=== PATIENT | female | born 1970 | race Caucasian/White ===

== ENCOUNTER 2021-01-05 02:24 | Observation (INO) ==
[2021-01-05] MEDS ORDERED: 0.9 % Sodium Chloride 1,000 ML IVC ONE (02:53)
[2021-01-05] MEDS ORDERED: Ondansetron 4 MG/2 ML VIAL IVP ONE (02:54)
[2021-01-05] MEDS ORDERED: *HR* FentaNYL (PF) 100 MCG/2 ML VIAL IVP ONE ×2 (02:54→03:46)
[2021-01-05 03:09] LABS: Basophils % 0.2 %; Hematocrit 47.8 % (35.3-44.9); Hemoglobin 15.8 g/dL (11.5-15.4); Immature Granulocytes % 0.6 % (0-4); Lymphocytes # 1.1 K/mcL (0.6-4.6); Lymphocytes % 6.4 %; Mean Corpuscular HGB Conc 33.1 g/dL (31.6-35.5); Mean Corpuscular Hemoglobin 27.4 pg (28.0-33.3); Mean Platelet Volume 11.6 fL (9.4-12.4); Monocytes # 0.6 K/mcL (0.0-1.3); Monocytes % 3.5 %; Neutrophils # 14.6 K/mcL (1.6-8.9); Platelet Count 342 K/mcL (140-400); Red Blood Count 5.76 M/mcL (3.82-4.97); Red Cell Distribution Width 13.4 % (11.5-14.5); Segmented Neutrophils % 89.3 %; White Blood Count 16.3 K/mcL (4.3-11.1)
[2021-01-05 03:26] LABS: Alanine Aminotransferase 31 Units/L (7-52); Albumin 4.5 g/dL (3.5-5.7); Albumin/Globulin Ratio 1.5 (1.1-2.2); Alkaline Phosphatase 115 Units/L (34-104); Aspartate Amino Transferase 29 Units/L (13-39); BUN/Creatinine Ratio 11 (6-26); Bilirubin,Direct 0.3 mg/dL (0.0-0.2); Bilirubin,Indirect 0.8 mg/dL (0.0-1.0); Bilirubin,Total 1.1 mg/dL (0.3-1.0); Blood Urea Nitrogen 12 mg/dL (6-20); Carbon Dioxide 26 mEq/L (23-29); Chloride 99 mEq/L (98-107); Globulin 3.1 g/dL (2.4-3.5); Glucose 147 mg/dL (70-105); Lipase 7 Units/L (11-82); Osmolality,Calculated 282 (280-300); Potassium 3.9 mEq/L (3.5-5.1); Sodium 135 mEq/L (136-145); Total Protein 7.6 g/dL (6.4-8.9); eGFR For African Americans > 60 (> 60); eGFR For Non-African Americans 52 (> 60)
[2021-01-05] MEDS ORDERED: levoFLOXacin 750 MG/150 ML 750 MG/150 ML BAG IVPB ONE (03:44)
[2021-01-05] MEDS ORDERED: MetroNIDAZOLE 500 MG/100 ML 500 MG/100 ML BAG IVPB ONE (03:44)
[2021-01-05] MEDS: 0.9 % Sodium Chloride 1,000 ML IVC SCH ×2 (04:14→12:19)
[2021-01-05] MEDS ORDERED: Ondansetron 4 MG/2 ML VIAL IVP PRN ×2 (06:51→11:49)
[2021-01-05 07:38] LABS: Bilirubin,Urine Negative (Negative); Blood,Urine Negative (Negative); Clarity,Urine Clear (Clear); Color,Urine Light-Yellow (Yellow); Glucose,Urine (UA) Normal (Normal); Ketones,Urine Negative (Negative); Leukocyte Esterase,Urine Negative (Negative); Nitrite,Urine Negative (Negative); Protein,Urine Negative (Neg-Trace); Specific Gravity,Urine 1.008 (1.010-1.025); Urobilinogen,Urine Normal (Normal)
[2021-01-05] MEDS ORDERED: Acetaminophen IV 1,000 MG/100 ML BAG IVPB ONE (08:02)
[2021-01-05] MEDS ORDERED: *HR* Propofol 200 MG/20 ML VIAL IVP ONE (09:41)
[2021-01-05] MEDS ORDERED: Lidocaine HCL 4 ML Topical Solution (Laryng-O-Jet Kit Sterile Pak) TP ONE (09:41)
[2021-01-05] MEDS ORDERED: Ondansetron 4 MG/2 ML VIAL ONE (09:41)
[2021-01-05] MEDS ORDERED: *HR* FentaNYL (PF) 100 MCG/2 ML VIAL ONE ×2 (09:41→09:59)
[2021-01-05] MEDS ORDERED: *HR* Rocuronium Bromide 50 MG/5 ML VIAL ONE (09:41)
[2021-01-05] MEDS ORDERED: Lidocaine -MPF 2% 2 ML VIAL ONE (09:41)
[2021-01-05] MEDS ORDERED: *HR* Midazolam HCl 2 MG/2 ML VIAL ONE (09:41)
[2021-01-05] MEDS ORDERED: Famotidine 20 MG/2 ML VIAL ONE (09:47)
[2021-01-05] MEDS ORDERED: Scopolamine Patch 1.5 MG PATCH.TD72 ONE (09:47)
[2021-01-05] MEDS ORDERED: Neostigmine Methylsulfate 3 MG/3 ML SYRINGE ONE (10:49)
[2021-01-05] MEDS ORDERED: MetroNIDAZOLE 500 MG/100 ML 500 MG/100 ML BAG IVPB SCH (12:00)
[2021-01-05] MEDS: MetroNIDAZOLE 500 MG/100 ML 500 MG/100 ML BAG IVPB SCH ×2 (12:19→17:44)
[2021-01-05] MEDS: Acetaminophen IV 1,000 MG/100 ML BAG IVPB SCH (18:04)
[2021-01-05] MEDS: clonazePAM 1 MG TABLET PO SCH (21:13)
[2021-01-06] MEDS: MetroNIDAZOLE 500 MG/100 ML 500 MG/100 ML BAG IVPB SCH ×5 (00:48→23:40)
[2021-01-06] MEDS: Acetaminophen IV 1,000 MG/100 ML BAG IVPB SCH ×5 (00:48→23:40)
[2021-01-06] MEDS: 0.9 % Sodium Chloride 1,000 ML IVC SCH ×4 (01:02→22:40)
[2021-01-06 03:01] LABS: Basophils % 0.1 %; Hematocrit 40.2 % (35.3-44.9); Immature Granulocytes % 0.7 % (0-4); Lymphocytes # 1.1 K/mcL (0.6-4.6); Lymphocytes % 8.4 %; Mean Corpuscular HGB Conc 32.6 g/dL (31.6-35.5); Mean Corpuscular Hemoglobin 27.6 pg (28.0-33.3); Mean Corpuscular Volume 84.6 fL (83.0-100.0); Mean Platelet Volume 11.2 fL (9.4-12.4); Monocytes # 1.1 K/mcL (0.0-1.3); Monocytes % 8.2 %; Neutrophils # 10.7 K/mcL (1.6-8.9); Platelet Count 208 K/mcL (140-400); Red Blood Count 4.75 M/mcL (3.82-4.97); Red Cell Distribution Width 13.6 % (11.5-14.5); Segmented Neutrophils % 82.6 %
[2021-01-06 03:02] LABS: Hemoglobin 13.1 g/dL (11.5-15.4)
[2021-01-06] MEDS: FLUoxetine 20 MG CAPSULE PO SCH (07:43)
[2021-01-06] MEDS: levoFLOXacin 750 MG/150 ML 750 MG/150 ML BAG IVPB SCH (07:43)
[2021-01-06] MEDS: BuPROPion XL (24 HR) 150 MG TABLET PO SCH (07:44)
[2021-01-06] MEDS: clonazePAM 0.5 MG TABLET PO SCH (07:44)
[2021-01-06] MEDS: Pregabalin 50 MG CAPSULE PO SCH (07:44)
[2021-01-06] MEDS ORDERED: levoFLOXacin 750 MG/150 ML 750 MG/150 ML BAG IVPB SCH (09:00)
[2021-01-06] MEDS: clonazePAM 1 MG TABLET PO SCH (20:15)
[2021-01-07] MEDS: 0.9 % Sodium Chloride 1,000 ML IVC SCH ×2 (05:44→07:43)
[2021-01-07] MEDS: MetroNIDAZOLE 500 MG/100 ML 500 MG/100 ML BAG IVPB SCH ×3 (05:44→17:14)
[2021-01-07] MEDS: Acetaminophen IV 1,000 MG/100 ML BAG IVPB SCH (06:46)
[2021-01-07] MEDS ORDERED: *HR* OxyCODONE/APAP 5/325 TABLET PO PRN (09:42)
[2021-01-07] MEDS: BuPROPion XL (24 HR) 150 MG TABLET PO SCH (09:53)
[2021-01-07] MEDS: Pregabalin 50 MG CAPSULE PO SCH (09:54)
[2021-01-07] MEDS: clonazePAM 0.5 MG TABLET PO SCH (09:54)
[2021-01-07] MEDS: levoFLOXacin 750 MG/150 ML 750 MG/150 ML BAG IVPB SCH (09:54)
[2021-01-07] MEDS: FLUoxetine 20 MG CAPSULE PO SCH (09:54)
[2021-01-07 15:29] VITALS: BP 143/80
== END 2021-01-07 19:41 | disposition home or self-care (01) ==
LOC: EMEROOARM 02:24 → 3ANU 02:24
PROVIDERS: ADMIT Surgery; ATTEND Surgery